=== PATIENT | female | born 1955 | race Caucasian/White ===

== ENCOUNTER 2017-10-04 23:24 | Emergency (ER) | payer BC, SELFPAY ==
[2017-10-04 23:33] VITALS: BP 155/90; PULSE 77; RESP 18; TEMP 36.4; O2SAT 100; BMI 28.7
--- NOTE | 2017-10-04 23:43 | CT_ITS ---
CT abdomen pelvis wo con CLINICAL INDICATION: Abdominal pain, right-sided abdominal pain with nausea and vomiting ITS.REASON: pain ORDERING PHYSICIAN: Dakotah Mejia MD PATIENT AGE: 62 years COMPARISON: None TECHNIQUE: Axial images obtained with sagittal and coronal reformats. All CT scans at the facility use one or more dose reduction, viz: automated exposure control; ma/kV adjustment per patient size (including targeted exams where dose is matched to indication; i.e. head); or iterative reconstruction technique. PROCEDURE: Oral Contrast: None IV Contrast: None . FINDINGS: There is a 5 mm noncalcified nodule in the right lung base posterior laterally incompletely imaged. Consider dedicated chest CT for further evaluation. Multiple isodense lesions involve the liver the largest in the hepatic dome at 2 cm and measuring at water density consistent with hepatic cysts. Prior cholecystectomy. Spleen, adrenal glands, and pancreas are unremarkable. There is a duodenal diverticulum projecting off the medial portion of the descending duodenum. Prior cholecystectomy without ductal dilatation There is a 4 mm stone in the lower pole the right kidney. There is minimal stranding of the right perinephric and proximal periureteral fat. No hydronephrosis or hydroureter. No intestinal obstruction or free air. Prior hysterectomy. The appendix is unremarkable. There is diverticulosis of the descending and sigmoid colon. No evidence of diverticulitis. There are scattered clips in the lower abdomen and pelvis. No acute bony anomalies. IMPRESSION: 1. Right nephrolithiasis. No obstructing ureteral calculi evident. 2. Minimal stranding of the right perinephric and proximal periureteral fat which could be related to recently passed stone or urinary tract infection. 3. Colonic diverticulosis without diverticulitis. 4. 5 mm incompletely imaged nodule within the right lower lobe. Consider dedicated chest CT for further evaluation.
[2017-10-04 23:57] LABS: Basophils % 0.5 % (0.1-2.0); Eosinophils # 0.1 K/mm3 (0.0-0.4); Eosinophils % 1.2 % (0.1-12.0); Hematocrit 38.5 % (37.0-47.0); Hemoglobin 12.6 g/dL (12.2-16.2); Lymphocytes % 49.6 K/mm3 (10-50); Mean Corpuscular HGB Conc 32.7 g/dL (31.8-35.4); Mean Corpuscular Hemoglobin 27.7 pg (27.0-31.2); Mean Corpuscular Volume 84.5 fl (81-99); Mean Platelet Volume 7.2 fl (7.4-10.4); Monocytes # 0.4 K/mm3 (0.1-1.0); Monocytes % 5.4 % (1.7-9.3); Neutrophils # 3.5 K/mm3 (1.8-7.8); Neutrophils % 43.3 % (37.0-80.0); Platelet Count 393 K/mm3 (142-424); Red Blood Count 4.55 M/mm3 (4.20-5.40); Red Cell Distribution Width 14.2 % (11.5-17.5); White Blood Count 8.1 K/mm3 (4.8-10.8)
[2017-10-05 00:11] LABS: Alanine Aminotransferase 23 U/L (12-78); Albumin Level 3.7 gm/dL (3.4-5.0); Albumin/Globulin Ratio 1.1 (1.1-1.8); Alkaline Phosphatase 74 U/L (46-116); Anion Gap 13.5 mEq/L (5-15); Aspartate Amino Transferase 14 U/L (15-37); Bilirubin,Total 0.1 mg/dL (0.2-1.0); Blood Urea Nitrogen 25 mg/dL (7-18); Carbon Dioxide 26 mmol/L (21.0-32.0); Chloride 105 mmol/L (98-107); Creatinine Clearance Estimated 65 mL/min (0-300); Creatinine,Serum 0.68 mg/dL (0.55-1.02); Estimated Glomerular Filt Rate 87 ml/min (>60); GFR (African American) 106 ML/MIN (>60); Globulin 3.4 gm/dl (1.3-3.2); Glucose 119 mg/dL (74-106); Potassium 3.5 mmoL/L (3.5-5.1); Sodium 141 mmol/L (136-145); Total Protein,Serum 7.1 gm/dL (6.4-8.2)
[2017-10-05 00:19] VITALS: BP 150/82; PULSE 77; RESP 14; O2SAT 97
[2017-10-05 00:23] LABS: Microscopic, Urine URINE MICROSCOPIC (MICROSCOPIC)
[2017-10-05 00:28] LABS: Appearance,Urine CLEAR (Clear); Bilirubin,Urine Negative (Negative); Blood, Urine 2+ (Negative); Color,Urine YELLOW (Yellow); Glucose,Urine (UA) Negative (Negative); Ketones,Urine Negative (Negative); Leukocyte Esterase,Urine Negative (Negative); Nitrate,Urine Negative (Negative); PH,Urine 5.5 (5.0-8.5); Protein,Urine Negative (Negative); Specific Gravity, Urine >= 1.030 (1.005-1.030); Urobilinogen,Urine 0.2 EU/dl (0.2)
[2017-10-05 00:33] LABS: Mucus,Urine 3+ /lpf
[2017-10-05 00:34] LABS: Amorphous Sediment,Urine Trace /lpf
--- NOTE | 2017-10-05 00:39 | [facility].EDUROGM ---
ED Disposition Clinical Impression: Renal colic on right side, Calculus of kidney Disposition: Home, Self-Care Condition on Discharge: Good Instructions: DI for Kidney Stones Referrals: Brock Manriquez [Primary Care Provider] - - Critical Care Critical Care Time: No Attestation: On 10/04/17, the high probability of a clinically significant, sudden or life threatening deterioration of the following system(s) required my full and direct attention, intervention and personal management. The time I documented below is in addition to time spent performing reported procedures but includes the following listed in this critical care notation. Medical Decision Making - Medical Records Medical records reviewed: Yes: I reviewed the patient's medical records. - Jaswant Inquiry Pt receiving controlled substance: No Vital Signs: 10/04/17 23:33 10/05/17 00:19 Temperature 97.6 F Temperature Source Oral Pulse Rate [Right Radial] 77 77 Respiratory Rate 18 14 Blood Pressure [Right Arm] 155/90 150/82 Blood Pressure Mean [Right Arm] 111 104 Blood Pressure Source [Right Arm] Automatic Cuff Automatic Cuff Blood Pressure Position [Right Arm] Supine Supine 02 Sat by Pulse Oximetry 100 97 Oxygen Delivery Method Room Air Room Air - Lab Data Lab results reviewed: Yes: I reviewed the patient's lab results. Lab Results 10/04/17 23:45: WBC 8.1, RBC 4.55, Hgb 12.6, Hct 38.5, MCV 84.5, MCH 27.7, MCHC 32.7, RDW 14.2, Plt Count 393, MPV 7.2 L, Neut % (Auto) 43.3, Lymph % (Auto) 49.6, [place] % (Auto) 5.4, Eos % (Auto) 1.2, Baso % (Auto) 0.5, Neut # (Auto) 3.5, Lymph # (Auto) 4.0, [place] # (Auto) 0.4, Eos # (Auto) 0.1, Baso # (Auto) 0.0 10/04/17 23:45: Sodium 141, Potassium 3.5, Chloride 105, Carbon Dioxide 26, Anion Gap 13.5, BUN 25 H, Creatinine 0.68, Estimated Creat Clear 65, Estimated GFR 87, Est GFR ( Amer) 106, Glucose 119 H, Calcium 9.0, Total Bilirubin 0.1 L, AST 14 L, ALT 23, Alkaline Phosphatase 74, Total Protein 7.1, Albumin 3.7, Globulin 3.4 H, Albumin/Globulin Ratio 1.1 10/05/17 00:17: Urine Color Yellow, Urine Appearance Clear, Urine pH 5.5, Ur Specific [place] >= 1.030, Urine Protein Negative, Urine Glucose (UA) Negative, Urine Ketones Negative, Urine Blood 2+, Urine Nitrate Negative, Urine Bilirubin Negative, Urine Urobilinogen 0.2, Ur Leukocyte Esterase Negative, Urine RBC 5-10, Urine WBC 3-5, Ur Squamous Epith Cells 5-10, Amorphous Sediment Trace, Urine Mucus 3+ Result diagrams: 10/04/17 23:45 10/04/17 23:45 Orders (Tests/Meds): ED MEDICATIONS Generic Name Dose Route Start Last Admin Trade Name Freq PRN Reason Stop Dose Admin Sodium Chloride 1,000 mls @ 999 mls/hr 10/04/17 23:45 10/04/17 23:43 Sod Chlor 0.9% 1000ml Bag IV 10/05/17 00:45 999 mls/hr .Q1H1M SAVANNA Administration Discontinued Medications Generic Name Dose Route Start Last Admin Trade Name Freq PRN Reason Stop Dose Admin Ketorolac Tromethamine 30 mg 10/04/17 23:43 10/04/17 23:46 Toradol 30mg/Ml Vial IV 10/04/17 23:44 30 mg ONCE ONE Administration Ondansetron HCl 4 mg 10/04/17 23:43 10/04/17 23:44 Zofran 4mg/2ml Vial IV 10/04/17 23:44 4 mg ONCE ONE Administration ORDERS Category Date Time Status CT abdomen pelvis wo con Stat Cat Scan 10/04/17 23:43 Taken - CT Data CT Scan: Abdomen, Pelvis Time Received: 00:[address] Reviewed: Yes: I have viewed the radiologist's interpretation Preliminary Findings: Abnormal (see report) Male Urogenital HPI - General Chief complaint: Abdominal Pain Stated complaint: Symptoms of Kidney Stones Time Seen by Provider: 10/05/17 00:39 Mode of Arrival: Ambulatory Source of Information: Patient, Spouse, Medical Record Limitations: No Limitations Description of Symptoms (Recalled from ER Triage Doc. by RN): right flank pain into abdomen, Hx of Kidney Stones - History of Present Illness HPI Narrative: rt flank pain with hx of renal stones Onset (ago): h
--- NOTE | 2017-10-05 00:44 | ED_ITS ---
ED Disposition Clinical Impression: Renal colic on right side, Calculus of kidney Disposition: Home, Self-Care Condition on Discharge: Good Instructions: DI for Kidney Stones Referrals: Brock Manriquez [Primary Care Provider] - - Critical Care Critical Care Time: No Attestation: On 10/04/17, the high probability of a clinically significant, sudden or life threatening deterioration of the following system(s) required my full and direct attention, intervention and personal management. The time I documented below is in addition to time spent performing reported procedures but includes the following listed in this critical care notation. Medical Decision Making - Medical Records Medical records reviewed: Yes: I reviewed the patient's medical records. - Jaswant Inquiry Pt receiving controlled substance: No Vital Signs: 10/04/17 23:33 10/05/17 00:19 Temperature 97.6 F Temperature Source Oral Pulse Rate [Right Radial] 77 77 Respiratory Rate 18 14 Blood Pressure [Right Arm] 155/90 150/82 Blood Pressure Mean [Right Arm] 111 104 Blood Pressure Source [Right Arm] Automatic Cuff Automatic Cuff Blood Pressure Position [Right Arm] Supine Supine 02 Sat by Pulse Oximetry 100 97 Oxygen Delivery Method Room Air Room Air - Lab Data Lab results reviewed: Yes: I reviewed the patient's lab results. Lab Results 10/04/17 23:45: WBC 8.1, RBC 4.55, Hgb 12.6, Hct 38.5, MCV 84.5, MCH 27.7, MCHC 32.7, RDW 14.2, Plt Count 393, MPV 7.2 L, Neut % (Auto) 43.3, Lymph % (Auto) 49.6, [place] % (Auto) 5.4, Eos % (Auto) 1.2, Baso % (Auto) 0.5, Neut # (Auto) 3.5 , Lymph # (Auto) 4.0, [place] # (Auto) 0.4, Eos # (Auto) 0.1, Baso # (Auto) 0.0 10/04/17 23:45: Sodium 141, Potassium 3.5, Chloride 105, Carbon Dioxide 26, Anion Gap 13.5, BUN 25 H, Creatinine 0.68, Estimated Creat Clear 65, Estimated GFR 87, Est GFR ( Amer) 106, Glucose 119 H, Calcium 9.0, Total Bilirubin 0.1 L, AST 14 L, ALT 23, Alkaline Phosphatase 74, Total Protein 7.1, Albumin 3.7 , Globulin 3.4 H, Albumin/Globulin Ratio 1.1 10/05/17 00:17: Urine Color Yellow, Urine Appearance Clear, Urine pH 5.5, Ur Specific [place] >= 1.030, Urine Protein Negative, Urine Glucose (UA) Negative, Urine Ketones Negative, Urine Blood 2+, Urine Nitrate Negative, Urine Bilirubin Negative, Urine Urobilinogen 0.2, Ur Leukocyte Esterase Negative, Urine RBC 5-10 , Urine WBC 3-5, Ur Squamous Epith Cells 5-10, Amorphous Sediment Trace, Urine Mucus 3+ Result diagrams: 10/04/17 23:45 10/04/17 23:45 Orders (Tests/Meds): ED MEDICATIONS Generic Name Dose Route Start Last Admin Trade Name Freq PRN Reason Stop Dose Admin Sodium Chloride 1,000 mls @ 999 mls/hr 10/04/17 23:45 10/04/17 23:43 Sod Chlor 0.9% 1000ml Bag IV 10/05/17 00:45 999 mls/hr .Q1H1M SAVANNA Administration Discontinued Medications Generic Name Dose Route Start Last Admin Trade Name Freq PRN Reason Stop Dose Admin Ketorolac Tromethamine 30 mg 10/04/17 23:43 10/04/17 23:46 Toradol 30mg/Ml Vial IV 10/04/17 23:44 30 mg ONCE ONE Administration Ondansetron HCl 4 mg 10/04/17 23:43 10/04/17 23:44 Zofran 4mg/2ml Vial IV 10/04/17 23:44 4 mg ONCE ONE Administration ORDERS Category Date Time Status CT abdomen pelvis wo con Stat Cat Scan 10/04/17 23:43 Taken - CT Data
[2017-10-05 00:54] VITALS: BP 133/76; PULSE 76; RESP 14; TEMP 37; O2SAT 97
== END 2017-10-05 00:57 | disposition home or self-care (01) ==
PROVIDERS: Emergency Provider Emergency Medicine; Family Provider Family Medicine; PCP Family Medicine
DX: N20.0 Calculus of kidney (principal); N23 Unspecified renal colic
CPT/HCPCS: 74176; 80053; 81001; 85025; 96365; 96375; 99283; J2405

== ENCOUNTER → 2019-12-06 10:00 | Outpatient (CLI) | payer MEDICARE, SELFPAY ==
--- NOTE | 2019-12-06 10:08 | XR_ITS ---
PROCEDURE: XR FOOT WT BEARING LT 3V CLINICAL INDICATION: pain COMPARISON: Right foot same date FINDINGS: No fracture or dislocation. No lytic or blastic change. There is normal mineralization. There is mild narrowing and sclerosis of the MP joint great toe. There is a moderate-sized spur of the calcaneus at the insertion of the plantar tendon. Tarsal bones metatarsals and phalanges otherwise appear normal. There is flattening of the plantar arch. Other findings:None. IMPRESSION: Mild osteoarthritic change MP joint great toe and [id number] pes planus Dictated by: Dr. Johnson Coffey MD 12/06/2019 10:[address] Johnson Coffey MD in [place] 12/06/2019 10:54
--- NOTE | 2019-12-06 10:08 | XR_ITS ---
PROCEDURE: XR FOOT WT BEARING RT 3V CLINICAL INDICATION: pain COMPARISON: No exams were available for comparison FINDINGS: No fracture or dislocation. No lytic or blastic change. There is normal mineralization. There is mild joint space narrowing of the MP joint great toe. There is mild varus angulation of the distal phalanx of the 4th toe. The tarsal bones and metatarsal otherwise appear normal. There is a tiny spur of the calcaneus at the insertion of the plantar tendon. There is flattening of the plantar arch. Other findings:None. IMPRESSION: Mild osteoarthritic change MP joint great toe and mild pes planus Dictated by: Dr. Johnson Coffey MD 12/06/2019 10:[address] Johnson Coffey MD in [place] 12/06/2019 10:53
== END ==
PROVIDERS: PCP Family Medicine; Visit Provider Podiatrist
DX: M79.671 Pain in right foot (principal); M79.672 Pain in left foot
CPT/HCPCS: 73630

== ENCOUNTER → 2019-12-13 09:24 | Outpatient (CLI) | payer MEDICARE, SELFPAY ==
[2019-12-13 09:49] LABS: Basophils # 0.1 K/mm3 (0-0.2); Basophils % 0.7 % (0.1-2.0); Eosinophils # 0.1 K/mm3 (0.0-0.4); Eosinophils % 1.8 % (0.1-12.0); Hematocrit 41.6 % (37.0-47.0); Hemoglobin 14.5 g/dL (12.2-16.2); Lymphocytes # 2.7 K/mm3 (0.7-4.5); Lymphocytes % 41.4 % (10-50); Mean Corpuscular HGB Conc 34.9 g/dL (31.8-35.4); Mean Corpuscular Hemoglobin 29.3 pg (27.0-31.2); Mean Corpuscular Volume 84.2 fl (81-99); Mean Platelet Volume 6.9 fl (7.4-10.4); Monocytes # 0.3 K/mm3 (0.1-1.0); Monocytes % 4.8 % (1.7-9.3); Neutrophils # 3.4 K/mm3 (1.8-7.8); Neutrophils % 51.2 % (37.0-80.0); Platelet Count 399 K/mm3 (142-424); Red Blood Count 4.94 M/mm3 (4.20-5.40); Red Cell Distribution Width 14.4 % (11.5-17.5); White Blood Count 6.6 K/mm3 (4.8-10.8)
[2019-12-13 10:21] LABS: Erythrocyte Sedimentation Rate 7 mm/hr (0-30)
[2019-12-13 10:50] LABS: Alanine Aminotransferase 14 U/L (12-78); Albumin Level 4.4 g/dl (3.5-5.0); Albumin/Globulin Ratio 1.4 (1.1-1.8); Alkaline Phosphatase 104 U/L (38-126); Anion Gap 14.7 mEq/L (5-15); Aspartate Amino Transferase 22 U/L (14-36); Bilirubin,Total 0.2 mg/dl (0.2-1.3); Blood Urea Nitrogen 15 mg/dl (7-17); Carbon Dioxide 30 mmol/L (22.0-30.0); Chloride 102 mmol/L (98-107); Estimated Glomerular Filt Rate 100 ml/min (>60); GFR (African American) 121 ML/MIN (>60); Globulin 3.1 g/dL (1.3-3.2); Glucose 121 mg/dl (74-100); Potassium 4.7 mmoL/L (3.5-5.1); Sodium 142 mmol/L (136-145); Total Protein,Serum 7.5 g/dl (6.3-8.2); Uric Acid 6.5 mg/dl (2.5-6.2)
[2019-12-13 10:55] LABS: C-Reactive Protein 2.9 mg/L (0-4)
== END ==
PROVIDERS: Visit Provider Podiatrist
DX: M79.671 Pain in right foot (principal)
CPT/HCPCS: 36415; 80053; 84550; 85025; 85651; 86140

== ENCOUNTER → 2021-05-03 12:47 | Outpatient (CLI) | payer MEDICARE, SELFPAY ==
--- NOTE | 2021-05-03 13:01 | US_ITS ---
PROCEDURE: US KIDNEY CLINICAL INDICATION: KIDNEY STONE,CALCULUS OF KIDNEY COMPARISON: CT ABDPELWO CT abdomen pelvis wo con from 10/04/2017 FINDINGS: The right kidney is [id number]. Small septated cyst is present in the mid aspect of the right kidney at 14 mm.. No hydronephrosis. No suspicious mass. The left kidney is [id number]. No hydronephrosis, cortical thinning, or renal mass or perinephric fluid collection is evident. No large renal calculi demonstrated IMPRESSION: Small right renal cyst otherwise negative bilateral renal Dictated by: Jung Harrell MD 05/03/2021 16:34 Jung Harrell MD in [place] 05/03/2021 16:34
== END ==
PROVIDERS: PCP Family Medicine; Visit Provider Urology
DX: N20.0 Calculus of kidney (principal)
CPT/HCPCS: 76770

== ENCOUNTER → 2022-06-09 09:51 | Outpatient (CLI) | payer MEDICARE, SELFPAY ==
--- NOTE | 2022-06-09 09:57 | US_ITS ---
FINAL REPORT TECHNIQUE: Sonographic images were obtained of the retroperitoneum. CLINICAL HISTORY: CYST OF KIDNEY FINDINGS: The right kidney measures 9.1 cm. The left kidney measures 10.5 cm. Suspected left parapelvic renal cysts. There is a small, 1.1 cm, cyst in the right kidney with possible stone or stones. The spleen measures 8.7 cm. IMPRESSION: Small right renal cyst with possible stone or stones. Suspected left parapelvic renal cysts. Reviewed, Interpreted and Dictated by Leroy Story III, MD Transcribed by Rigo Knapp Authenticated and [facility]
== END ==
PROVIDERS: PCP Family Medicine; Visit Provider Urology
DX: N28.1 Cyst of kidney, acquired (principal)
CPT/HCPCS: 76770

== ENCOUNTER → 2022-07-16 06:18 | Outpatient (CLI) | payer SELFPAY ==
--- NOTE | 2022-07-16 06:19 | CT_ITS ---
FINAL REPORT CLINICAL HISTORY: . FINDINGS: CT CORONARY CALCIUM SCORE W/O TECHNIQUE: Thin-section axial images were obtained through the heart and coronary arteries per CT coronary calcium score protocol. This study was performed with techniques to keep radiation doses as low as reasonably achievable (ALARA). Individualized dose reduction techniques using automated exposure control or adjustment of mA and/or kV according to the patient's size were employed. FINDINGS: On the axial images, no significant calcification is seen. This gives a coronary artery calcium score of 0 based on the Agatston scale. This coronary artery calcium score places the patient within the 0 percentile based on age and gender. The heart size is normal. There is no pleural or pericardial effusion. Limited evaluation of the lungs reveal a lingular nodule measuring 4 mm. IMPRESSION: 1. Coronary artery calcium score of 0 based on the Agatston scale placing the patient within the 0 percentile based on age and gender. 2. Limited evaluation of the lungs reveal a lingular nodule measuring 4 mm. Recommend follow-up per risk stratification and Fleischner criteria. Reviewed, Interpreted and Dictated by Elvia Corrigan MD Transcribed by Enedina Marin Authenticated and [facility]
== END ==
PROVIDERS: PCP Family Medicine; Visit Provider Internal Medicine
DX: I20.8 Other forms of angina pectoris (principal); R00.2 Palpitations; R42 Dizziness and giddiness; R94.31 Abnormal electrocardiogram [ECG] [EKG]; Z82.49 Family history of ischemic heart disease and other diseases of the circulatory system
CPT/HCPCS: 75571

== ENCOUNTER → 2022-07-16 06:21 | Outpatient (CLI) | payer MEDICARE, SELFPAY ==
--- NOTE | 2022-07-16 06:22 | CA_ITS ---
APPROVED REPORT Exam: Exercise Treadmill Technologist: Margareth Dinh Ht: 5 ft 1 in Wt: 163 lbs BSA: 1.73 m2 HR: 60 bpm BP: 127/68 mmHg Indications: Abnormal EKG, Palpitations Medical History Medications: Levothyroxine,,,,, Sumatriptan,,,,, Potassium,,,,, Stress Test Details Test: Jimbo HR Resting HR: 69 bpm Max Heart Rate (APMHR): 152.869678 bpm Max HR Achieved: 125 bpm Target HR (85% APMHR): 129.753361 bpm % of APMHR: 82.24 Recovery HR: 68 bpm BP Resting BP: 127.0/68.0 mmHg Max BP: 153.0/72.0 mmHg Recovery BP: 124.0/67.0 mmHg ECG Resting ECG: Normal sinus rhythm, low voltage QRS. Clinical Exercise duration: 08:19 min Highest Stage Achieved: Exercise capacity: 10.1 METs Stress ECG Conclusion Patient exercised 8:19 into stage III Jimbo Protocol. Test stopped due to shortness of air, fatigue. Symptoms: Light-headed. No chest pain. Arrhythmias/Ectopy: Occasional PAC. ST-T Changes: Within normal ST response to exercise. Conclusion: Normal GXT to heart rate achieved (82% of PM). Blunted heart rate response, on beta fransico. Myoview images reported separately. Test Summary REST . . . . . . . Sitting REST . . . . . . . Standing REST 04:59 0.0 0.0 69 . 127/ 68 . . Stage 1 01:00 10.0 1.7 78 . . . . Stage 1 02:00 10.0 1.7 84 . . . . Stage 1 03:00 10.0 1.7 88 . 138/ 70 . . Stage 2 01:00 12.0 2.5 95 . . . . Stage 2 02:00 12.0 2.5 102 . . . . Stage 2 03:00 12.0 2.5 105 . 152/ 72 . . Stage 3 . . . . . . . Myoview Injected Stage 3 01:00 14.0 3.4 115 . . . . Stage 3 02:00 14.0 3.4 121 . . . . Stage 3 02:19 14.0 3.4 123 . . . Stop exercise at 08:19 RECOVERY 01:00 0.0 0.0 105 . . . . RECOVERY 02:00 0.0 0.0 88 . . . . RECOVERY 03:00 0.0 0.0 75 . 153/ 72 . . RECOVERY 04:00 0.0 0.0 71 . 130/ 68 . . RECOVERY 05:00 0.0 0.0 68 . 130/ 68 . . RECOVERY 05:22 0.0 0.0 68 . 124/ 67 . . Electronically signed by : Richard Colvin MD 07/17/2022 06:31:43
--- NOTE | 2022-07-16 06:22 | NM_ITS ---
APPROVED REPORT Exam: Nuclear Stress Test Indication: HTN, FM HX, PALPITATIONS Patient Location: Outpatient Stress Tech: Margareth Dinh [place] Tech:Kira Ramirez YARITZA RT (R)(N)(M) Ht: 5 ft 1 in Wt: 161 lbs Bra Size: 38D HR: 60 bpm BP: 127/68 mmHg BSA: 1.72 m2 TID: 1.02 BMI: 30.4 History: HTN, FM HX, PALPITATIONS Procedure: Patient exercised on Jimbo protocol 8:19 minutes and sec, resting heart rate 60 bpm, resting blood pressure 127/68 mmHg, with exercise maximum heart rate achived was 125 bpm which is 82 % of the maximum predicted heart rate and blood pressure was 152/72 mmHg. Test was stopped due to LIGHT HEADED. Patient denied any complaint of chest pain. Patient has Good exercise capacity, achieved 10.1 METs of workload on treadmill, the blood pressure response to exercise was Adequate. Electrocardiogram Resting electrocardiogram shows sinus rhythm, with exercise there is less than 1.[address] segment depression from the baseline EKG. The EKG portion of the exercise Myoview was nondiagnostic as patient did not achieve the target heart rate. Cardiac Stress and Resting SPECT Images: Cardiac Stress and Resting SPECT images were obtained using technetium 99m Myoview 31.6 mCi stress and 10.97 mCi at rest. Gated SPECT for analysis of segmental wall motion and calculation of the ejection fraction also done. Prone images were also obtained. Cardiac stress and rest SPECT images show uniform myocardial activity without segmental perfusion abnormality, computer derived ejection fraction is 65% with no regional wall motion abnormality, right ventricle is normal size and contractility. Conclusion: 1. The EKG portion of the exercise Myoview was nondiagnostic as patient did not achieve the target heart rate, patient has good exercise capacity achieved 10.1 METs of workload on treadmill, the blood pressure response to exercise was adequate, there was no exercise-induced chest discomfort. 2. No scintigraphic evidence of reversible ischemia seen at this level of exercise, computer derived ejection fraction is 65% with no regional wall motion abnormality, right ventricle is normal size and contractility. 3. Normal exercise Myoview study at 82% of the maximum predicted heart rate. Electronically signed by : Richard Colvin MD 07/17/2022 06:34:28
--- NOTE | 2022-07-16 06:22 | CA_ITS ---
APPROVED REPORT EXAM: Comprehensive 2D, Doppler, and color-flow Echocardiogram Refining Engineer: Roseline Diamond RT(R) Ht: 5 ft 1 in Wt: 161lbs BSA: 1.72 BP: 140/87 mmHg Indications: abn EKG, palpitations, CP, fatigue, family history of HD, SOB. 2D Dimensions LVOT 1.84 cm (M/F) 1.5-2.5 LVEF (Lara's) 63.30 % F: 54 - 74 LV Volume 58.80 mL F: 46 - 106 LV Volume Index 34.19 mL/m2 F: 29 - 61 LA Volume 15.30 mL LA Volume Index 8.90 mL/m2 (M/F) 16-34 M-Mode Dimensions RVDd 2.83 cm (0.9-2.6) LA Diam 3.51 cm (1.9-4.0) LVDd 4.06 cm (3.5-5.7) Ao Diam 2.25 cm (2.0-3.7) LVDs 3.07 cm (3.5-5.7) IVSd 1.08 cm (0.6-1.1) PWd 0.84 cm (0.6-1.1) EF (Teich) 49.00% FS 24.40% EDV (Teich) 72.50 mL ESV (Teich) 37.00 mL LV Diastology E Decel Time 190.00 (160-240 msec) E/A Ratio 0.7 MED E' 8.30 (< 7 cm/sec) E'/MED E' Ratio 7.34 (>14) LAT E' 7.60 (<10 cm/sec) E/LAT E' Ratio 8.01 (>14) Aortic Valve AI PHT 680.00 ms Mitral Valve MV E Max Paramjit. 61.00 (40-130 cm/s) MV A Velocity 82.00 (40-130 cm/s) E/A Ratio 0.74 MV Decel. Time 190.00 (160-240 ms) MV PHT 56.00 ms Left Ventricle Left atrium is mildly enlarged, left ventricle is normal size mild concentric left ventricular hypertrophy, estimated ejection fraction 55% with no regional wall motion abnormality, grade 1 diastolic dysfunction seen without tissue Doppler evidence of raise left atrial pressure. Right Ventricle Right atrium and right ventricular normal size and contractility. Aortic Valve Aortic valve is minimally thickened and fibrosed there is no aortic stenosis, there is trace aortic insufficiency. Mitral Valve Mitral valve is grossly normal, there is trace mitral regurgitation. Tricuspid Valve Tricuspid grossly normal, there is trace tricuspid regurgitation, tricuspid regurgitation jet velocity is inadequate for calculation of the right ventricular systolic pressure. Pulmonic Valve Pulmonic valve is poorly visualized. Aortic root is normal size. Great Vessels Inferior vena cava is normal size with normal inspiratory collapse. Pericardium No significant pericardial effusion noted. Conclusion 1. Mildly enlarged left atrium, normal left ventricular size, mild concentric left ventricular hypertrophy, estimated ejection fraction 55% with no regional wall motion abnormality, grade 1 diastolic dysfunction seen without tissue Doppler evidence of raise left atrial pressure. 2. Trace mitral aortic and tricuspid regurgitation. 3. No significant pericardial effusion. 4. Inferior vena cava is normal size with normal inspiratory collapse. Electronically signed by : Richard Colvin MD 07/17/2022 05:47:02
== END ==
PROVIDERS: PCP Family Medicine; Visit Provider Internal Medicine
DX: I20.8 Other forms of angina pectoris (principal); R00.2 Palpitations; R42 Dizziness and giddiness; R94.31 Abnormal electrocardiogram [ECG] [EKG]; Z82.49 Family history of ischemic heart disease and other diseases of the circulatory system
CPT/HCPCS: 78452; 93017; 93306; A9502

== ENCOUNTER → 2022-11-03 10:53 | Outpatient (CLI) | payer MEDICARE, SELFPAY ==
--- NOTE | 2022-11-03 10:56 | XR_ITS ---
FINAL REPORT CLINICAL HISTORY: Painful Great Toe COMPARISON: 12/06/2019 FINDINGS: Three views show no evidence of acute displaced fracture or dislocation of the visualized bony architecture. There are scattered degenerative changes of the digits, most pronounced at the 1st MTP joint which is mildly worse as compared to the prior exam. There is pes planus deformity. A mild plantar calcaneal spur is noted. IMPRESSION: Mildly worsened degenerative changes of the 1st metatarsophalangeal joint. Reviewed, Interpreted and Dictated by Jakub Kennedy MD Transcribed by Ting Mckeon Authenticated and [facility]
== END ==
PROVIDERS: PCP Family Medicine; Visit Provider Podiatrist
DX: M79.675 Pain in left toe(s) (principal)
CPT/HCPCS: 73630

== ENCOUNTER 2023-04-21 08:39 | Day surgery (SDC) | payer MEDICARE, SELFPAY ==
[2023-04-20 09:13] VITALS: BMI 29.6
[2023-04-21] VITALS (8 sets, daily range): BP systolic 120–142; BP diastolic 66–71; PULSE 48–58; RESP 16–18; TEMP 36.5–37.1; O2SAT 98–100
== END 2023-04-21 11:10 | disposition home or self-care (01) ==
PROVIDERS: PCP Family Medicine; Visit Provider Ophthalmology
PROC: (CPT 66984; principal; 2023-04-21 11:00)
DX: H25.811 Combined forms of age-related cataract, right eye (principal)
CPT/HCPCS: 66984; V2632

== ENCOUNTER 2023-06-09 08:05 | Day surgery (SDC) | payer MEDICARE, SELFPAY ==
[2023-06-05 12:32] VITALS: BMI 30.9
[2023-06-09] VITALS (8 sets, daily range): BP systolic 127–145; BP diastolic 63–77; PULSE 50–58; RESP 16–19; TEMP 36.3–36.7; O2SAT 97–100
== END 2023-06-09 11:03 | disposition home or self-care (01) ==
PROVIDERS: PCP Family Medicine; Visit Provider Ophthalmology
PROC: (CPT 66984; principal; 2023-06-09 10:30)
DX: H25.812 Combined forms of age-related cataract, left eye (principal)
CPT/HCPCS: 66984; V2632

== ENCOUNTER 2023-07-28 10:05 | Outpatient (CLI) | payer MEDICARE, SELFPAY ==
[2023-07-28 10:27] LABS: Basophils % 0.6 % (0.1-2.0); Eosinophils # 0.1 K/mm3 (0.0-0.4); Eosinophils % 2.4 % (0.1-12.0); Hematocrit 43.9 % (37.0-47.0); Hemoglobin 14.4 g/dL (12.2-16.2); Lymphocytes # 1.9 K/mm3 (0.7-4.5); Lymphocytes % 32.5 % (10-50); Mean Corpuscular HGB Conc 32.7 g/dL (31.8-35.4); Mean Corpuscular Hemoglobin 29.1 pg (27.0-31.2); Mean Corpuscular Volume 88.9 fl (81-99); Mean Platelet Volume 7.6 fl (7.4-10.4); Monocytes # 0.3 K/mm3 (0.1-1.0); Monocytes % 5.6 % (1.7-9.3); Neutrophils # 3.5 K/mm3 (1.8-7.8); Neutrophils % 58.9 % (37.0-80.0); Platelet Count 303 K/mm3 (142-424); Red Blood Count 4.94 M/mm3 (4.20-5.40); Red Cell Distribution Width 14.4 % (11.5-17.5); White Blood Count 5.9 K/mm3 (4.8-10.8)
[2023-07-28 10:50] LABS: Chloride 105 mmol/L (98-107); Potassium 5.2 mmoL/L (3.5-5.1); Sodium 141 mmol/L (136-145)
[2023-07-28 10:53] LABS: Alanine Aminotransferase 23 U/L (12-78); Albumin Level 4.1 g/dl (3.5-5.0); Alkaline Phosphatase 71 U/L (38-126); Anion Gap 12.2 mEq/L (5-15); Aspartate Amino Transferase 25 U/L (14-36); Bilirubin,Direct 0.1 mg/dl (0.0-0.4); Bilirubin,Indirect 0.6 mg/dL (0.0-0.9); Bilirubin,Total 0.7 mg/dl (0.2-1.3); Bilirubin,Unconjugated 0.6 mg/dL (0.0-1.1); Blood Urea Nitrogen 21 mg/dl (7-17); Calcium 9.4 mg/dl (8.4-10.2); Carbon Dioxide 29 mmol/L (22.0-30.0); Cholesterol 151 mg/dl (140-200); Estimated Glomerular Filt Rate 99 ml/min (>60); GFR (African American) 120 ML/MIN (>60); Glucose 108 mg/dl (74-100); Total Protein,Serum 6.7 g/dl (6.3-8.2); Triglycerides 92 mg/dl (30-150); VLDL Cholesterol 18 mg/dL (0-40)
[2023-07-28 10:54] LABS: Chol/HDL Ratio 3.4 (1-3.5); HDL Cholesterol 44 mg/dl (40-60)
[2023-07-28 11:05] LABS: Direct LDL Cholesterol 77.07 mg/dL (100-129)
[2023-07-28 11:10] LABS: Free T4 (Free Thyroxine) 1.66 ng/dl (0.78-2.19)
[2023-07-28 11:25] LABS: Thyroid Stimulating Hormone 1.21 uIU/mL (0.465-4.68)
== END 2023-07-28 23:59 ==
LOC: LAB 10:06
PROVIDERS: PCP Family Medicine; Visit Provider Physician Assistant
DX: R94.31 Abnormal electrocardiogram [ECG] [EKG] (principal); Z82.49 Family history of ischemic heart disease and other diseases of the circulatory system; I11.9 Hypertensive heart disease without heart failure; R06.00 Dyspnea, unspecified; E11.9 Type 2 diabetes mellitus without complications
CPT/HCPCS: 36415; 80048; 80061; 80076; 84439; 84443; 85025

== ENCOUNTER 2023-08-21 12:10 | Emergency (ER) | payer MEDICARE, SELFPAY ==
[2023-08-21 12:30] VITALS: BP 123/88; PULSE 71; RESP 19; TEMP 36.8; O2SAT 99; BMI 30.1
--- NOTE | 2023-08-21 12:32 | ED_ITS ---
Discharge Plan Disposition Patient Disposition: Home, Self-Care Condition: Good Prescriptions Prescriptions: New ondansetron 4 mg Tablet,Disintegrating 4 mg PO Q8H PRN (Reason: Nausea) Qty: 12 0RF dicyclomine 20 mg tablet 20 mg PO TID PRN (Reason: abdominal cramping) Qty: 20 0RF No Action levothyroxine 125 mcg tablet PO sumatriptan succinate 100 mg tablet 100 mg PO ONCE PRN (Reason: migraine headache) bisoprolol fumarate 5 mg tablet 5 mg PO QDAY Qty: 30 11RF atorvastatin 20 mg Tablet 20 mg PO HS aspirin 81 mg Tablet,Chewable 81 mg PO DAILY famotidine 40 mg Tablet 40 mg PO HS omeprazole 40 mg Capsule,Delayed Release(Dr/Ec) 40 mg PO DAILY Referrals Follow up/Referrals: Phil Sethi MD [Primary Care Provider] - See instructions Activity Restrictions/Add. Instructions Additional Instructions/Restrictions: Drink plenty of fluids. Take tylenol or ibuprofen for pain or fever. Take the medications as directed. Follow up with your regular doctor. GO TO THE ER FOR ANY WORSENING SYMPTOMS Clinical Impressions Clinical Impression: Gastroenteritis, Diarrhea Instructions Patient Instructions: Viral Gastroenteritis, DI for Viral Gastroenteritis -- Adult, Ondansetron, Dicyclomine Discharge ED Provider: Brock Sims [facility] General Stated complaint: nausea, diarrea, abd pain Time Seen by Provider: 08/21/23 12:32 History of Present Illness Provider Complaint: She states that for the past 3 days she has had diarrhea, nausea and vomiting. She has had lower abdominal discomfort at times also. She still has her appendix. Related Data Home Medications Medication Instructions Recorded Confirmed sumatriptan succinate 100 mg tablet 100 mg PO ONCE PRN migraine 11/04/22 07/22/23 headache atorvastatin 20 mg tablet 20 mg PO HS 04/20/23 07/22/23 aspirin 81 mg chewable tablet 81 mg PO DAILY 04/21/23 07/22/23 famotidine 40 mg tablet 40 mg PO HS 04/21/23 07/22/23 omeprazole 40 mg capsule,delayed 40 mg PO DAILY 04/21/23 07/22/23 release levothyroxine 125 mcg tablet mcg PO 07/22/23 07/22/23 Previous Rx's Medication Instructions Recorded bisoprolol fumarate 5 mg tablet 5 mg PO QDAY #30 tabs 08/03/23 dicyclomine 20 mg tablet 20 mg PO TID PRN abdominal 08/21/23 cramping #20 tabs ondansetron 4 mg disintegrating 4 mg PO Q8H PRN Nausea #12 tabs 08/21/23 tablet Allergies Allergy/AdvReac Type Severity Reaction Status Date / Time fentanyl [FENTANYL] Allergy Unknown Verified 07/22/23 11:13 morphine [MORPHINE] Allergy Unknown Verified 07/22/23 11:13 bee pollen Allergy Verified 07/22/23 11:13 Tetanus Vaccines and Toxoid Allergy Verified 07/22/23 11:13 venom-wasp Allergy Verified 07/22/23 11:13 [facility] Disclaimer: The information contained in this section may have been updated after the patient was seen, as this information can be updated by other users. Medical History Abnormal electrocardiogram [ECG] [EKG] Atypical angina Dizziness Family history of ischemic heart disease Palpitations Surgical History History of cholecystectomy History of colonoscopy History of hysterectomy History of lumpectomy History of ureteroscopy Family History Mother Colon cancer Lung cancer Grandmother Family history of kidney stone Father Family history of acute heart failure Social History Smoking Status: Never smoker alcohol intake: never current occupational status: retired Travel in the last 8 weeks: Inside the [place] ROS Obtained: Yes All systems reviewed & no additional complaints except as documented Constitutional Constitutional: Denies chills, Denies fever(s) and Reports poor appetite ENT Ears, Nose, Mouth, and Throat: Denies dizziness and Denies sore throat Cardiovascular Cardiovascular: Denies dyspnea Respiratory Respiratory: Denies chest congestion, Denies cough and Denies dyspnea Gastrointestinal Gastrointestingal: Reports as per HPI Genitourinary Female Genitourinary: Denies difficulty voiding, Denies dysuria, Denies hematuria, Denies urinary frequency, Denies urinary incontinence, Denies urinary hesitancy and Denies urinary urgency Musculoskeletal Musculoskeletal: Denies arthralgias Integumentary/Breasts Skin/Breast: Denies rash Neurologic Neurologic: Denies dizziness Physical Exam General General appearance: alert and in no apparent distress Head Head exam: atraumatic and normocephalic Eye Eye exam: Present normal appearance, PERRL and EOMI ENT ENT exam: Present normal exam, normal oropharynx, mucous membranes moist, TM's normal bilaterally and normal external ear exam Neck Neck exam: Present normal inspection, full ROM and trachea midline; Absent tenderness, meningismus or lymphadenopathy Chest Chest inspection: Present normal inspection and symmetric chest wall rise; Absent tenderness, rash or abscess Respiratory Respiratory exam: Present normal lung sounds bilaterally; Absent respiratory distress, wheezes or stridor Cardiovascular Cardiovascular exam: Present regular rate and normal rhythm; Absent irregular rhythm, systolic murmur, diastolic murmur or JVD Abdominal Exam Abdominal exam: Present soft and hyperactive bowel sounds; Absent distention, tenderness, guarding, rebound, rigidity, psoas sign, obturator sign, heel tap sign, Randall's sign, Rovsing's sign or tenderness at McBurney's Point Extremities Exam Extremities exam: Present normal inspection and full ROM; Absent tenderness Back Exam Back exam: Present normal inspection and full ROM; Absent tenderness, CVA tenderness (R) or CVA tenderness (L) Neurological Exam Neurological exam: Present alert, oriented X3 and CN II-XII intact Psychiatric Psychiatric exam: Present normal affect and normal mood Skin Skin exam: Present warm, dry, intact and normal color Lymphatic Lymphatic Findings: no adenopathy Medical Decision Making Medical Records Medical records reviewed: No I reviewed the patient's medical records. Jaswant Inquiry Pt receiving controlled substance: No Lab Data Lab results reviewed: Yes I reviewed the patient's lab results. 08/21/23 12:55 08/21/23 12:55
[2023-08-21 12:40] LABS: Apearance,Urine Clear (Clear); Color,Urine Yellow (Yellow)
[2023-08-21 12:41] LABS: Bilirubin,Urine 1+ (Negative); Blood, Urine 1+ (Negative); Glucose,Urine (UA) Negative (Negative); Ketones,Urine TRACE (Negative); Protein,Urine Negative (Negative); UTC Leukocyte Esterase,Urine Negative (Negative); UTC Nitrate,Urine Negative (Negative); Urobilinogen,Urine 1 EU/dl (0.2)
[2023-08-21 13:07] LABS: Basophils % 0.4 % (0.1-2.0); Eosinophils # 0.1 K/mm3 (0.0-0.4); Eosinophils % 1.5 % (0.1-12.0); Hematocrit 42.9 % (37.0-47.0); Hemoglobin 13.9 g/dL (12.2-16.2); Lymphocytes # 2.3 K/mm3 (0.7-4.5); Lymphocytes % 33.6 % (10-50); Mean Corpuscular HGB Conc 32.3 g/dL (31.8-35.4); Mean Corpuscular Hemoglobin 28.7 pg (27.0-31.2); Mean Corpuscular Volume 88.8 fl (81-99); Mean Platelet Volume 7.6 fl (7.4-10.4); Monocytes # 0.5 K/mm3 (0.1-1.0); Monocytes % 7.2 % (1.7-9.3); Neutrophils # 3.9 K/mm3 (1.8-7.8); Neutrophils % 57.3 % (37.0-80.0); Platelet Count 332 K/mm3 (142-424); Red Blood Count 4.83 M/mm3 (4.20-5.40); Red Cell Distribution Width 14.1 % (11.5-17.5); White Blood Count 6.8 K/mm3 (4.8-10.8)
[2023-08-21 13:15] LABS: Chloride 107 mmol/L (98-107); Potassium 4.4 mmoL/L (3.5-5.1); Sodium 140 mmol/L (136-145)
[2023-08-21 13:18] LABS: Anion Gap 7.4 mEq/L (5-15); Blood Urea Nitrogen 20 mg/dl (7-17); Carbon Dioxide 30 mmol/L (22.0-30.0); Creatinine Clearance Estimated 62 mL/min (50-200); Estimated Glomerular Filt Rate 99 ml/min (>60); GFR (African American) 120 ML/MIN (>60)
[2023-08-21 13:19] LABS: Calcium 8.9 mg/dl (8.4-10.2); Glucose 105 mg/dl (74-100)
[2023-08-21 13:36] VITALS: BP 123/88; PULSE 71; RESP 19; TEMP 36.8; O2SAT 99
== END 2023-08-21 13:41 | disposition home or self-care (01) ==
PROVIDERS: Emergency Provider Nurse Practitioner Family; PCP Family Medicine
DX: K52.9 Noninfective gastroenteritis and colitis, unspecified (principal); R11.2 Nausea with vomiting, unspecified; R10.819 Abdominal tenderness, unspecified site
CPT/HCPCS: 80048; 81003; 85025; 99204; 99212; G0463

== ENCOUNTER 2023-11-05 10:55 | Emergency (ER) | payer MEDICARE, SELFPAY ==
[2023-11-05 11:04] VITALS: BP 135/82; PULSE 67; O2SAT 97
[2023-11-05 11:08] VITALS: BP 135/82; PULSE 71; RESP 20; TEMP 37.1; O2SAT 98; BMI 30.6
--- NOTE | 2023-11-05 11:20 | CT_ITS ---
FINAL REPORT CLINICAL HISTORY: hit head/ dull headache FINDINGS: Axial images of the head were obtained without contrast. Coronal and sagittal reformatted images were also obtained.This study was performed with techniques to keep radiation doses as low as reasonably achievable (ALARA). Individualized dose reduction techniques using automated exposure control or adjustment of mA and/or kV according to the patient's size were employed. There is no evidence of intracranial hemorrhage or mass. The ventricular size is within normal limits. There is no evidence of shift of the midline structures. No abnormal extra axial fluid collection is identified. There are postoperative changes in the maxilla bilaterally. IMPRESSION: No acute intracranial abnormality. Reviewed, Interpreted and Dictated by Leroy Story III, MD Transcribed by Elvia Aguilar Authenticated and [facility]
[2023-11-05 11:30] VITALS: BP 128/83; PULSE 68; O2SAT 97
--- NOTE | 2023-11-05 11:32 | ED_ITS ---
Discharge Plan Disposition Patient Disposition: Home, Self-Care Condition: Good Prescriptions Prescriptions: No Action levothyroxine 125 mcg tablet PO sumatriptan succinate 100 mg tablet 100 mg PO ONCE PRN (Reason: migraine headache) bisoprolol fumarate 5 mg tablet 5 mg PO QDAY Qty: 30 11RF atorvastatin 20 mg Tablet 20 mg PO HS aspirin 81 mg Tablet,Chewable 81 mg PO DAILY famotidine 40 mg Tablet 40 mg PO HS omeprazole 40 mg Capsule,Delayed Release(Dr/Ec) 40 mg PO DAILY ondansetron 4 mg Tablet,Disintegrating 4 mg PO Q8H PRN (Reason: Nausea) Qty: 12 0RF dicyclomine 20 mg tablet 20 mg PO TID PRN (Reason: abdominal cramping) Qty: 20 0RF Referrals Follow up/Referrals: Phil Sethi MD [Primary Care Provider] - See instructions Activity Restrictions/Add. Instructions Additional Instructions/Restrictions: You have been evaluated in the ED for your complaints. You may follow-up with your PCP in the next 3 to 5 days. Please return to ED for any new or worsening symptoms. Please take Tylenol or ibuprofen as needed for your headache. If your vision worsens or becomes completely black please return to ED. Clinical Impressions Clinical Impression: Left temporal headache, Fall Discharge ED Provider: Kael Luz Adult HPI General Chief complaint: Headache Stated complaint: eyes blurry, vertigo, bump on left side of head Time Seen by Provider: 11/05/23 11:32 Mode of Arrival: Ambulatory Source of Information: Patient Limitations: No Limitations Description of Symptoms (Recalled from ER Triage Doc. by RN): pt to ed c/o left sided headache. pt states she was sitting on a log swing on thursday night while holding her dog on a leash. pt states her dog pulled and she hit the left side of her head on the swing. pt c/o dull headache and blury vision on the left side. pt reports a hx of migranes and states she thought she was having a routine headache. History of Present Illness HPI narrative: 68-year-old female with past medical history significant for TIA, migraine headaches, gout, presents today for evaluation concerning a left temporal headache with mild blurred vision of the left eye. Patient states that she was helping her dog 3 days ago and accidentally had a fall where she hit her head on a log. She did not lose consciousness. Has been ambulatory without neck or back pain since the event however she states that her headache although less than moderate in characterization is still present. She notes very mild blurred vision in the left eye. Denies any fevers or chills, chest pain or shortness of breath. Denies any numbness, tingling or weakness. She does take 81 mg aspirin nightly. No further complaints. Related Data Home Medications Medication Instructions Recorded Confirmed sumatriptan succinate 100 mg tablet 100 mg PO ONCE PRN migraine 11/04/22 07/22/23 headache atorvastatin 20 mg tablet 20 mg PO HS 04/20/23 07/22/23 aspirin 81 mg chewable tablet 81 mg PO DAILY 04/21/23 07/22/23 famotidine 40 mg tablet 40 mg PO HS 04/21/23 07/22/23 omeprazole 40 mg capsule,delayed 40 mg PO DAILY 04/21/23 07/22/23 release levothyroxine 125 mcg tablet mcg PO 07/22/23 07/22/23 Previous Rx's Medication Instructions Recorded bisoprolol fumarate 5 mg tablet 5 mg PO QDAY #30 tabs 08/03/23 dicyclomine 20 mg tablet 20 mg PO TID PRN abdominal 08/21/23 cramping #20 tabs ondansetron 4 mg disintegrating 4 mg PO Q8H PRN Nausea #12 tabs 08/21/23 tablet Allergies Allergy/AdvReac Type Severity Reaction Status Date / Time fentanyl [FENTANYL] Allergy Unknown Verified 07/22/23 11:13 morphine [MORPHINE] Allergy Unknown Verified 07/22/23 11:13 bee pollen Allergy Verified 07/22/23 11:13 Tetanus Vaccines and Toxoid Allergy Verified 07/22/23 11:13 venom-wasp Allergy Verified 07/22/23 11:13 [facility] Disclaimer: The information contained in this section may have been updated after the patient was seen, as this information can be updated by other users. Medical History Abnormal electrocardiogram [ECG] [EKG] Atypical angina Dizziness Family history of ischemic heart disease Palpitations Surgical History History of cholecystectomy History of colonoscopy History of hysterectomy History of lumpectomy History of ureteroscopy Family History Mother Colon cancer Lung cancer Grandmother Family history of kidney stone Father Family history of acute heart failure Social History Smoking Status: Never smoker alcohol intake: never current occupational status: retired Travel in the last 8 weeks: Inside the [place] ROS Obtained: Yes All systems reviewed & no additional complaints except as documented Physical Exam General General appearance: alert and in no apparent distress Head Head exam: atraumatic and normocephalic Eye Eye exam: Present normal appearance, PERRL and EOMI ENT ENT exam: Present normal oropharynx and mucous membranes moist Neck Neck exam: Present full ROM; Absent meningismus Respiratory Respiratory exam: Absent respiratory distress, wheezes, stridor or accessory muscle use Cardiovascular Cardiovascular exam: Present normal rhythm Abdominal Exam Abdominal exam: Present soft; Absent distention, tenderness, guarding, rebound or rigidity Neurological Exam Neurological exam: Present alert, oriented X3 and CN II-XII intact; Absent motor sensory deficit Psychiatric Psychiatric exam: Present normal affect and normal mood Skin Skin exam: Present warm and dry Medical Decision Making Medical Records Medical records reviewed: Yes I reviewed the patient's medical records. Jaswant Inquiry Pt receiving controlled substance: No Jaswant was queried for this patient: No Vital Signs: 11/05/23 11:04 11/05/23 11:08 11/05/23 11:30 Temperature 98.7 F Temperature Source Oral Pulse Rate 67 68 Pulse Rate [Left Radial] 71 Respiratory Rate 20 Blood Pressure 135/82 128/83 Blood Pressure [Right Arm] 135/82 Blood Pressure Mean 99 98 Blood Pressure Mean [Right Arm] 99 02 Sat by Pulse Oximetry 97 98 97 Oxygen Delivery Method Room Air Lab Data Lab Results 11/05/23 11:47: WBC 6.6, RBC 4.77, Hgb 13.7, Hct 42.5, MCV 89.0, MCH 28.7, MCHC 32.3, RDW 14.5, Plt Count 313, MPV 7.7, Neut % (Auto) 64.5, Lymph % (Auto) 28.4, [place] % (Auto) 5.4, Eos % (Auto) 1.0, Baso % (Auto) 0.8, Neut # (Auto) 4.3, Lymph # (Auto) 1.9, [place] # (Auto) 0.4, Eos # (Auto) 0.1, Baso # (Auto) 0.1, ESR 16, PT 10.6, INR 0.98, Sodium 140, Potassium 4.3, Chloride 105, Carbon Dioxide 29, Anion Gap 10.3, BUN 20 H, Creatinine 0.60, Estimated Creat Clear 62, Estimated GFR 99, Est GFR ( Amer) 120, Glucose 110 H, Calcium 9.5, Total Bilirubin 0.8, AST 27, ALT 21, Alkaline Phosphatase 80, C-Reactive Protein 1.7, Total Protein 7.1, Albumin 4.1, Globulin 3.0, Albumin/Globulin Ratio 1.4 11/05/23 11:47 11/05/23 11:47 Orders (Tests/Meds): ED MEDICATIONS Discontinued Medications Generic Name Dose Route Start Last Admin Trade Name Freq PRN Reason Stop Dose Admin Iopamidol 100 ml 11/05/23 12:36 11/05/23 12:37 Iopamidol-370 (76%);100ml Bottle IV 11/05/23 12:37 100 ml ONCE ONE Administration Sodium Chloride 40 ml 11/05/23 12:36 11/05/23 12:37 0.9 % Sodium Chloride 50 Ml Vial IV 11/05/23 12:37 40 ml ONCE ONE Administration Sodium Chloride 10 ml 11/05/23 12:36 11/05/23 12:37 Sodium Chloride 0.9% 10ml Syr (Rad Only) IV 11/05/23 12:37 10 ml ONCE ONE Administration ORDERS Category Date Time Status CT angio head Stat Cat Scan 11/05/23 11:[address] angio neck Stat Cat Scan 11/05/23 11:[address] head/brain wo con Stat Cat Scan 11/05/23 11:20 Completed CBC w/Auto Diff [Complete Blood Count Auto Diff] Stat Lab 11/05/23 11:47 Completed CMP [Comprehensive Metabolic Panel] Stat Lab 11/05/23 11:47 Completed CRP [C-Reactive Protein] Stat Lab 11/05/23 11:47 Completed ESR [Erythrocyte Sedimentation Rate] Stat Lab 11/05/23 11:47 Completed PT INR [Prothrombin Time INR] Stat Lab 11/05/23 11:47 Completed Medical Decision Narrative: 68-year-old female with past medical history significant for TIA, migraine headaches, gout, presents today for evaluation concerning a left temporal headache with mild blurred vision of the left eye. Patient states that she was helping her dog 3 days ago and accidentally had a fall where she hit her head on a log. She did not lose consciousness. Has been ambulatory without neck or back pain since the event however she states that her headache although less than moderate in characterization is still present. She notes very mild blurred vision in the left eye. On assessment, she is hemodynamically stable and in no acute distress. Afebrile. Chest clear to auscultation bilaterally. Abdomen soft nondistended nontender palpation. No midline tenderness to palpation of the C/T/L-spine. No external signs of trauma on the head. Mild tenderness palpation of the left temporal region without external signs of trauma. No skin changes over temporal artery. Neurological exam nonfocal. Differential diagnoses include but limited to intracranial bleed, migraine headache, cluster headache, tension headache, vessel occlusion, CVA, TIA, and others. Patient stated that she she did not need any pain medications today. Her lab workup has been unremarkable. CRP and ESR unremarkable. CT head without any acute intracranial abnormalities. CTA head/neck without any occlusions noted. Visual acuity was noted to be 20/30 bilaterally. On reassessment she remains medically stable and in no acute distress. Remains at baseline. Discussed with patient ED work-up and results and current plan to discharge. Provided with return to ED precautions and instructions concerning PCP follow-up. Patient verbalized understanding and agreement with plan. Subsequently discharged hemodynamically stable and in no acute distress. Critical Care Critical Care Time Critical Care Time: No
--- NOTE | 2023-11-05 11:32 | CT_ITS ---
FINAL REPORT TECHNIQUE: Thin section axial CT with IV contrast supplemented with multiplanar reconstruction under CT angiogram protocol. 3-D reconstructions were performed. This study was performed with techniques to keep radiation doses as low as reasonably achievable (ALARA). Individualized dose reduction techniques using automated exposure control or adjustment of mA and/or kV according to the patient''s size were employed. CLINICAL HISTORY: L eye blurred vision COMPARISON: None FINDINGS: No aneurysm is seen. Major intracranial vessels are patent without significant stenosis. IMPRESSION: No significant stenosis or major branch occlusion identified. Reviewed, Interpreted and Dictated by Leroy Story III, MD Transcribed by Estefania Cox Authenticated and . [facility]
--- NOTE | 2023-11-05 11:32 | CT_ITS ---
FINAL REPORT TECHNIQUE: Thin section axial CT with IV contrast supplemented with multiplanar reconstruction under CT angiogram protocol. This study was performed with techniques to keep radiation doses as low as reasonably achievable (ALARA). Individualized dose reduction techniques using automated exposure control or adjustment of mA and/or kV according to the patient''s size were employed. NASCET criteria was utilized during interpretation. CLINICAL HISTORY: L eye blurred vision COMPARISON: None FINDINGS: Aortic arch: Arch shows no significant narrowing. Great vessel origins are widely patent. Right carotid: No significant stenosis is seen of the cervical common or internal carotid artery. The internal carotid artery is very tortuous. Left carotid: No significant stenosis is seen of the cervical common or internal carotid artery. The internal carotid artery is very tortuous. Vertebral: Right vertebral artery is dominant. No significant stenosis is present. IMPRESSION: No significant stenosis. Bilateral ICAs are very tortuous. Reviewed, Interpreted and Dictated by Leroy Story III, MD Transcribed by Estefania Cox Authenticated and [facility]
--- NOTE | 2023-11-05 11:54 | PC.NURSE ---
[place]: 20/30 bilaterally
[2023-11-05 12:00] LABS: Basophils # 0.1 K/mm3 (0-0.2); Basophils % 0.8 % (0.1-2.0); Eosinophils # 0.1 K/mm3 (0.0-0.4); Hematocrit 42.5 % (37.0-47.0); Hemoglobin 13.7 g/dL (12.2-16.2); Lymphocytes # 1.9 K/mm3 (0.7-4.5); Lymphocytes % 28.4 % (10-50); Mean Corpuscular HGB Conc 32.3 g/dL (31.8-35.4); Mean Corpuscular Hemoglobin 28.7 pg (27.0-31.2); Mean Platelet Volume 7.7 fl (7.4-10.4); Monocytes # 0.4 K/mm3 (0.1-1.0); Monocytes % 5.4 % (1.7-9.3); Neutrophils # 4.3 K/mm3 (1.8-7.8); Neutrophils % 64.5 % (37.0-80.0); Platelet Count 313 K/mm3 (142-424); Red Blood Count 4.77 M/mm3 (4.20-5.40); Red Cell Distribution Width 14.5 % (11.5-17.5); White Blood Count 6.6 K/mm3 (4.8-10.8)
[2023-11-05 12:05] LABS: Chloride 105 mmol/L (98-107); Potassium 4.3 mmoL/L (3.5-5.1); Sodium 140 mmol/L (136-145)
[2023-11-05 12:08] LABS: Alanine Aminotransferase 21 U/L (12-78); Albumin Level 4.1 g/dl (3.5-5.0); Albumin/Globulin Ratio 1.4 (1.1-1.8); Alkaline Phosphatase 80 U/L (38-126); Anion Gap 10.3 mEq/L (5-15); Aspartate Amino Transferase 27 U/L (14-36); Bilirubin,Total 0.8 mg/dl (0.2-1.3); Blood Urea Nitrogen 20 mg/dl (7-17); Calcium 9.5 mg/dl (8.4-10.2); Carbon Dioxide 29 mmol/L (22.0-30.0); Creatinine Clearance Estimated 62 mL/min (50-200); Estimated Glomerular Filt Rate 99 ml/min (>60); GFR (African American) 120 ML/MIN (>60); Glucose 110 mg/dl (74-100); Total Protein,Serum 7.1 g/dl (6.3-8.2)
[2023-11-05 12:11] LABS: INR 0.98 (0.9-1.1); Prothrombin Time 10.6 seconds (10.1-12.5)
[2023-11-05 12:13] LABS: C-Reactive Protein 1.7 mg/L (0-4)
[2023-11-05] MEDS: 0.9 % SODIUM CHLORIDE 50 ML VIAL 40 ML IV (12:37)
[2023-11-05] MEDS: SODIUM CHLORIDE 0.9% 10ML SYR (RAD ONLY) 10 ML IV (12:37)
[2023-11-05] MEDS: IOPAMIDOL-370 (76%);100ML BOTTLE 100 ML IV (12:37)
[2023-11-05 12:47] LABS: Erythrocyte Sedimentation Rate 16 mm/hr (0-30)
[2023-11-05 14:21] VITALS: BP 128/83; PULSE 68; RESP 18; TEMP 36.7; O2SAT 97
== END 2023-11-05 14:25 | disposition home or self-care (01) ==
PROVIDERS: Emergency Provider Emergency Medicine; PCP Family Medicine
DX: G44.89 Other headache syndrome (principal); H53.8 Other visual disturbances; W19.XXXA Unspecified fall, initial encounter
CPT/HCPCS: 70450; 70496; 70498; 80053; 85025; 85610; 85651; 86140; 99285; Q9967